=== PATIENT | female | born 1950 | race Caucasian/White ===

== ENCOUNTER → 2018-02-09 13:07 | Outpatient (CLI) | payer OTHER, SELFPAY ==
--- NOTE | 2018-02-09 | DI.US.S_ITS ---
ULTRASOUND OF RIGHT BREAST: 02/09/2018 CLINICAL: Patient returns for additional imaging over a suspected mass in the right breast. Comparison is made to exams dated: 02/09/2018 mammogram and 01/30/2018 mammogram - [facility]. Color flow ultrasound of the right breast was performed. Barrientos scale images of the real-time examination were reviewed. There is a 0.4 cm x 0.3 cm x 0.4 cm oval mass with a circumscribed margin in the right breast at 8 o'clock anterior depth 4 cm from the nipple. This oval mass is hypoechoic. IMPRESSION: SUSPICIOUS OF MALIGNANCY - FOLLOW-UP RECOMMENDED The 0.4 cm x 0.3 cm x 0.4 cm oval mass in the right breast is suspicious of malignancy. An ultrasound guided biopsy is recommended. Findings discussed with the patient in person at the time of evaluation by Dr. Burgos of the department of radiology. This exam was interpreted at Station ID: [id number]. Electronically Signed By: Efrain Silva M.D. cj/:02/09/2018 16:39:46 letter sent: Biopsy Required Ultrasound BI-RADS: 4 Suspicious abnormality
--- NOTE | 2018-02-09 | DI.MG.S_ITS ---
UNILATERAL RIGHT DIGITAL DIAGNOSTIC MAMMOGRAM 3D/2D WITH ADDITIONAL VIEWS: 02/09/2018 CLINICAL: Additional evaluation requested from prior study. Comparison is made [facility] The tissue of the right breast is heterogeneously dense. This may lower the sensitivity of mammography. There is a 5 mm irregular equal density mass with a circumscribed margin in the right breast at 7 o'clock anterior depth. No other significant masses or calcifications are seen in the breast. IMPRESSION: INCOMPLETE: NEEDS ADDITIONAL IMAGING EVALUATION The 5 mm irregular equal density mass in the right breast is indeterminate. An ultrasound is recommended. This exam was interpreted at Station ID: [id number]. NOTE: For mammograms, a report in lay terms will be sent to the patient. Approximately 15% of breast malignancies will not be visualized mammographically. In the management of a palpable breast mass, a negative mammogram must not discourage biopsy of a clinically suspicious lesion. Electronically Signed By: Efrain lugo/alex:02/09/2018 14:33:29 ACR BI-RADS Category 0: Incomplete 3340F
== END ==
PROVIDERS: Visit Provider Internal Medicine
DX: R92.8 Other abnormal and inconclusive findings on diagnostic imaging of breast (principal)
CPT/HCPCS: 76642; 77065; G0279

== ENCOUNTER → 2019-03-11 09:51 | Outpatient (CLI) | payer OTHER, SELFPAY ==
--- NOTE | 2019-03-11 | DI.RAD.S_ITS ---
PROCEDURE: XR CHEST 2V INDICATIONS: DYSPNEA TECHNIQUE: 2 views of the chest were acquired. COMPARISON: None. FINDINGS: Surgical changes and devices: None. Lungs and pleura: Lungs are clear. No pleural effusions or pneumothorax. Mediastinum: Mediastinal contours are normal. Heart size is normal. Bones and chest wall: No suspicious bony abnormalities. Soft tissues appear unremarkable. IMPRESSION: Normal for age, source of current dyspnea symptoms is not seen. Dictated by: Artem Burgos M.D. on 03/11/2019 at 10:13 Approved by: Artem Burgos M.D. on 03/11/2019 at 10:13
== END ==
PROVIDERS: Visit Provider Internal Medicine
DX: R06.00 Dyspnea, unspecified (principal)
CPT/HCPCS: 71046

== ENCOUNTER → 2019-03-16 09:16 | Outpatient (CLI) | payer OTHER, SELFPAY ==
--- NOTE | 2019-03-16 | DI.MG.S_ITS ---
BILATERAL DIGITAL SCREENING MAMMOGRAM 3D/2D WITH CAD: 03/16/2019 CLINICAL: Routine screening. Comparison is made to exams dated: 02/09/2018 mammogram and 01/30/2018 mammogram - [facility]. The tissue of both breasts is heterogeneously dense. This may lower the sensitivity of mammography. Current study was also evaluated with a Computer Aided Detection (CAD) system. There is a benign biopsy clip in the right breast. No significant masses, calcifications, or other findings are seen in either breast. There has been no significant interval change. IMPRESSION: NEGATIVE There is no mammographic evidence of malignancy. A 1 year screening mammogram is recommended. This exam was interpreted at Station ID: [id number]. NOTE: For mammograms, a report in lay terms will be sent to the patient. Approximately 15% of breast malignancies will not be visualized mammographically. In the management of a palpable breast mass, a negative mammogram must not discourage biopsy of a clinically suspicious lesion. Electronically Signed By: Teja ricci/alex:03/16/2019 14:02:32 letter sent: Normal Exam ACR BI-RADS Category 1: Negative 3341F
== END ==
PROVIDERS: PCP Internal Medicine; Visit Provider Internal Medicine
DX: Z12.31 Encounter for screening mammogram for malignant neoplasm of breast (principal); M85.851 Other specified disorders of bone density and structure, right thigh; Z78.0 Asymptomatic menopausal state
CPT/HCPCS: 77063; 77067; 77080

== ENCOUNTER → 2019-07-27 15:13 | Outpatient (ROUT) | payer OTHER, SELFPAY ==
[2019-07-27 16:18] LABS: TSH w/ Reflex to FT4 1.78 uIU/mL (0.47-4.68)
== END ==
PROVIDERS: PCP Internal Medicine; Visit Provider Internal Medicine
DX: E03.9 Hypothyroidism, unspecified (principal)
CPT/HCPCS: 84443

== ENCOUNTER → 2020-02-27 09:22 | Outpatient (CLI) | payer OTHER, SELFPAY ==
[2020-02-28 06:18] LABS: SARS CoV19 IgG Negative (Negative)
== END ==
PROVIDERS: PCP Internal Medicine; Referring Provider Internal Medicine; Visit Provider Internal Medicine
DX: Z03.818 Encounter for observation for suspected exposure to other biological agents ruled out (principal)
CPT/HCPCS: 36415; 86769

== ENCOUNTER → 2020-10-06 08:20 | Outpatient (CLI) | payer MEDICARE, OTHER, SELFPAY ==
--- NOTE | 2020-10-06 | DI.MG.S_ITS ---
BILATERAL DIGITAL SCREENING MAMMOGRAM 3D/2D WITH CAD: 10/06/2020 CLINICAL: Routine screening. Comparison is made to exams dated: 03/16/2019 mammogram, 02/09/2018 mammogram, and 01/30/2018 mammogram - [facility]. The tissue of both breasts is heterogeneously dense. This may lower the sensitivity of mammography. Current study was also evaluated with a Computer Aided Detection (CAD) system. There is a biopsy clip in the right breast. No significant masses, calcifications, or other findings are seen in either breast. There has been no significant interval change. IMPRESSION: NEGATIVE There is no mammographic evidence of malignancy. A 1 year screening mammogram is recommended. This exam was interpreted at Station ID: [id number]. NOTE: For mammograms, a report in lay terms will be sent to the patient. Approximately 15% of breast malignancies will not be visualized mammographically. In the management of a palpable breast mass, a negative mammogram must not discourage biopsy of a clinically suspicious lesion. Electronically Signed By: Tim hernandes/alex:10/08/2020 09:26:05 letter sent: Normal Exam ACR BI-RADS Category 1: Negative 3341F
== END ==
PROVIDERS: PCP Internal Medicine; Referring Provider Internal Medicine; Visit Provider Internal Medicine
DX: Z12.31 Encounter for screening mammogram for malignant neoplasm of breast (principal)
CPT/HCPCS: 77063; 77067

== ENCOUNTER → 2021-02-28 15:39 | Outpatient (ROUT) | payer MEDICARE, OTHER, SELFPAY ==
[2021-02-28 16:25] LABS: Aspartate Aminotransferase 29 IU/L (14-36); BUN Creatinine Ratio 23.4 (6-22); Blood Urea Nitrogen 15 mg/dL (7-17); Calcium 9.9 mg/dL (8.4-10.2); Carbon Dioxide 28 mmol/L (22-32); Chloride 105 mmol/L (98-107); Cholesterol 204 mg/dL (140-199); Estimated Glomerular Filt Rate > 60.0 mL/min (>60); Glucose 94 mg/dL (80-110); HDL Cholesterol 77 mg/dL (40-60); HEMOLYSIS < 15 (0-50); LDL Cholesterol Calculated 117 mg/dL (<100); Potassium 4.2 mmol/L (3.4-5.1); Sodium 140 mmol/L (137-145); Triglycerides 50 mg/dL (35-150)
[2021-02-28 16:52] LABS: TSH w/ Reflex to FT4 0.25 uIU/mL (0.47-4.68)
[2021-02-28 18:39] LABS: Free T4, Direct Thyroxine 2.46 ng/dL (0.78-2.19)
== END ==
PROVIDERS: PCP Internal Medicine; Visit Provider Internal Medicine
DX: E03.9 Hypothyroidism, unspecified (principal); E78.2 Mixed hyperlipidemia
CPT/HCPCS: 80048; 80061; 84439; 84443; 84450

== ENCOUNTER 2021-03-21 10:43 | Emergency (ER) | payer MEDICARE, OTHER, SELFPAY ==
[2021-03-21 10:45] VITALS: BP 132/63; PULSE 64; RESP 14; TEMP 37.3; O2SAT 100; BMI 22.6
[2021-03-21 15:35] VITALS: BP 105/60; PULSE 63; RESP 18; O2SAT 97
--- NOTE | 2021-03-21 17:11 | ED.FALL ---
HPI - Fall General Chief Complaint: Fall Stated Complaint: fell and hit head Time Seen by Provider: 03/21/21 16:40 Source: patient Mode of arrival: Wheelchair History of Present Illness HPI Narrative: 71-year-old woman with a history of Troy's esophagus, hyperlipidemia, hypothyroidism, depression and sleep issues who was playing [employer] ball this afternoon tripped stumbled and fell backward hitting the occiput of her head. She comes in for further evaluation. She notes some minor tenderness in the left trapezius in the left buttock without significant contusion. She was able to walk without difficulty after the injury. She notes that she has a mild amount of dizziness and L low-grade headache but no other symptoms at this time. I she is alert and oriented and complains of no recent fevers, cough, chills, palpitations, chest pain, orthopnea, dyspnea, changed any of her abdominal pain or bowel habits and no dysuria. Related Data Allergies Allergy/AdvReac Type Severity Reaction Status Date / Time No Known Drug Allergies Allergy Verified 03/21/21 10:51 Review of Systems Review of Systems Narrative: Remainder of complete review of systems is otherwise unremarkable except for that included in the HPI. Patient History Medical History Barretts esophagus Depression Hyperlipidemia Hypothyroid Social History Smoking Status: Unknown if ever smoked Smoking Status: Unknown if ever smoked alcohol intake frequency: holidays/special occasions only Substance Use Type: does not use Exam Narrative Exam Narrative: General: Healthy appearing, in no acute distress. Able to give a complete and coherent history. Well-nourished well-developed HEENT: Moist mucous membranes, normal sclera with reactive pupils, no hemorrhage on bilateral funduscopic exam. No blood behind tympanic membranes. Minor abrasion to the occiput without any signs of skull fracture. Neck: supple, no midline cervical spine tenderness. Some minor trapezius muscle spasm on the left side developing Chest: No rib fractures on palpitation no abrasions or contusions no subcutaneous air Respiratory: Lungs are clear to auscultation, no wheezing no rales no rhonchi. Full and symmetrical air movement Cardiac: Regular rate and rhythm no murmurs no bruits Abdomen: Soft, nontender, good bowel tones, no flank pain Skin: Warm and dry, no rashes Pelvis: No tenderness along thoracic or lumbar spine no coccyx tenderness some mild pain into the left buttock without any pelvic ring or ischial tuberosity issues. Neurologic: Grossly neurologically intact with no obvious asymmetries or abnormalities Extremities: No trauma, well perfused Psych: Cooperative, appropriate insight and affect Initial Vital Signs Initial Vital Signs: Vital Signs Temperature 99.1 F 03/21/21 10:45 Pulse Rate 64 03/21/21 10:45 Respiratory Rate 14 03/21/21 10:45 Blood Pressure 132/63 03/21/21 10:45 Pulse Oximetry 100 03/21/21 10:45 Course Orders Ordered: Discontinued Medications Acetaminophen (Acetaminophen 325 Mg Tablet) 325 mg PO NOW ONE Stop: 03/21/21 17:10 Ibuprofen (Ibuprofen 400 Mg Tablet) 400 mg PO NOW ONE Stop: 03/21/21 17:10 Vital Signs Vital signs: Vital Signs - 8 hr 03/21/21 10:45 03/21/21 15:35 Temperature 99.1 F Pulse Rate 64 63 Respiratory Rate 14 18 Blood Pressure 132/63 105/60 Pulse Oximetry 100 97 [facility] - Fall Medical Records Attestation: I reviewed the patient's medical records. Lab Data Attestation: I reviewed the patient's lab results. [facility] Narrative Medical decision making narrative: 71-year-old woman who had a mechanical fall landing and hitting the occiput of her head without loss of consciousness. At this time she is not meeting any criteria for head CT. We clearly reviewed signs and symptoms of head bleed and concussion and suggested that they have a very low threshold for returning if she has any worsening symptoms. In the meantime, reassurance is given, discussed anticipated course of recovery including nausea headaches over the next couple of days and increased pain musculoskeletal E for the 1st 24-48 hours. Questions are answered and she is safe for home discharge Discharge Plan Departure Patient Disposition: Home Clinical Impression: Concussion without loss of consciousness Qualifiers: Encounter type: initial encounter Qualified Code(s): S06.0X0A - Concussion without loss of consciousness, initial encounter Fall Qualifiers: Encounter type: initial encounter Qualified Code(s): W19.XXXA - Unspecified fall, initial encounter Contusion of head Qualifiers: Encounter type: initial encounter Contusion of head detail: scalp Qualified Code(s): S00.03XA - Contusion of scalp, initial encounter Contusion of hip, right Qualifiers: Encounter type: initial encounter Qualified Code(s): S70.01XA - Contusion of right hip, initial encounter Instructions: DI for Concussion, DI for Postconcussion Syndrome Activity Restrictions/Additional Instructions: Thank you for coming in today and being so patient with the long wait. On your exam, I am seeing no evidence of fractures of your skull your cervical spine your lumbar spine or your pelvis. At this time, we do not need to do a CT scan of your head. By definition you do have a concussion and will likely feel a bit ?off? for the next couple of days. Allow yourself time to heal and the patient with the irritability that you may notice. Using 400 mg of ibuprofen (2 yjtd-huw-zjjoort pills) and 1 Tylenol every 6 hours can be very helpful in controlling pain. Zofran, a nausea medicine, can help with the general nausea that frequently accompanies concussions If you notice any worsening symptoms at all, please return to the ER Referrals: Rob Calderon MD [Primary Care Provider] -
[2021-03-21] MEDS: IBUPROFEN 400 MG TABLET PO (17:20)
[2021-03-21] MEDS: ACETAMINOPHEN 325 MG TABLET PO (17:21)
== END 2021-03-21 17:43 | disposition home or self-care (01) ==
PROVIDERS: Emergency Provider Emergency Medicine; PCP Internal Medicine
DX: S06.0X0A Concussion without loss of consciousness, initial encounter (principal); S00.03XA Contusion of scalp, initial encounter; S70.01XA Contusion of right hip, initial encounter; W19.XXXA Unspecified fall, initial encounter
CPT/HCPCS: 99282; 99283

== ENCOUNTER → 2021-08-02 09:13 | Outpatient (CLI) | payer MEDICARE, OTHER, SELFPAY ==
[2021-08-02 09:50] LABS: COVID19 -Nasal RAPID Negative (Negative)
== END ==
PROVIDERS: PCP Internal Medicine; Visit Provider Physician Assistant
DX: Z20.822 Contact with and (suspected) exposure to COVID-19 (principal)
CPT/HCPCS: 87635

== ENCOUNTER 2021-12-18 00:54 | Emergency (ER) | payer MEDICARE, SELFPAY ==
--- NOTE | 2021-12-18 00:57 | ED.HEATRA ---
HPI - Head Injury General Chief complaint: Fall Stated complaint: FELL AND HIT HEAD AND IS BLEEDING Time Seen by Provider: 12/18/21 00:55 History of Present Illness HPI Narrative: 71F nonsmoker with history of hyper lipidemia, hypothyroid, and depression presents with her in the chief complaint of an accidental ground level fall resulting in head injury. She takes no blood thinners and denies use of alcohol. She may have been a very brief loss of consciousness but quickly resumed her normal behavior. She is at her baseline on arrival. She denies any blurred vision, trouble speech. She has no vomiting and denies other injury. She states that she was walking down her stairs and may have fell down 3 stairs or so and struck her head. She denies any neck or back pain and states the fall was purely mechanical and due to a clutzy moment. Related Data Previous Rx's Medication Instructions Recorded ondansetron 4 mg disintegrating 4 mg PO Q8H PRN #10 tab 03/21/21 tablet Allergies Allergy/AdvReac Type Severity Reaction Status Date / Time No Known Drug Allergies Allergy Verified 03/21/21 10:51 Review of Systems Review of Systems Narrative: GENERAL: Denies chills, fatigue, malaise, fever, sweats. HEENT: Denies sinus pain, ear pain, sore throat, difficulty swallowing, dizziness. RESPIRATORY: Denies dyspnea, cough, wheezing, hemoptysis, sputum. CARDIOVASCULAR: Denies chest pain, palpitations, orthopnea, edema, GASTROINTESTINAL: Denies nausea, vomiting, abdominal pain, diarrhea, constipation, melena. : Denies dysuria, frequency, incontinence, hematuria, urinary retention. MUSCULOSKELETAL: denies weakness, joint pain, or bony pain SKIN: See HPI NEUROLOGIC: Denies weakness, headache, numbness, change in speech, confusion, seizures, incoordination. PSYCHIATRIC: No concerning psychosocial issues. 12 point review of systems is negative except for those stated above Patient History Medical History Barretts esophagus Depression Hyperlipidemia Hypothyroid Social History Smoking Status: Never smoker Smoking Status: Unknown if ever smoked alcohol intake frequency: holidays/special occasions only Substance Use Type: does not use Exam Narrative Exam Narrative: GENERAL: [71] year old patient appears stated age. Well-developed patient, in mild distress. GCS 15 HEAD: Atraumatic. Normocephalic. No evidence of depressed skull fracture EYES: Pupils equal round and reactive. No hyphema. Extraocular motions intact. No scleral icterus. No injection or drainage. ENT: Nose without bleeding, purulent drainage. Throat without erythema, tonsillar hypertrophy or exudate. Airway patent. NECK: Trachea midline. Non tender CARDIOVASCULAR: Regular rate and rhythm without murmurs, gallops, or rubs. RESPIRATORY: Clear to auscultation. Breath sounds equal bilaterally. No wheezes, rales, or rhonchi. GASTROINTESTINAL: Abdomen soft, non-tender, nondistended. EXTREMITIES: No edema or joint tenderness. BACK: Nontender without deformity or crepitance. No flank tenderness. NEURO: AOx3. SKIN: No rash or erythema of visible areas Initial Vital Signs Initial Vital Signs: Vital Signs Temperature 97.3 F L 12/18/21 01:08 Pulse Rate 76 12/18/21 01:08 Respiratory Rate 15 12/18/21 01:08 Blood Pressure 118/52 L 12/18/21 01:08 Pulse Oximetry 94 12/18/21 01:08 Procedures Laceration Repair Laceration 1: Site: scalp Side (If applicable): right Size (cm): 3 Description: stellate Depth: simple, single layer Local Anesthetic: lidocaine 1% and with epi Amount of anesthesia used (mL): 5 Pre-repair: wound explored and irrigated extensively Skin layer closed with: ayush Course Orders Ordered: ED Orders 12/18/21 01:01 CT head/brain wo con Stat Discontinued Medications Acetaminophen (Acetaminophen 325 Mg Tablet) 650 mg PO NOW ONE Stop: 12/18/21 01:46 Last Admin: 12/18/21 01:49 Dose: 650 mg Documented by: Diphtheria/Tetanus/Acell Pertussis (Tet,Diph,Pertuss(Acell),Vac/Pf 0.5 Ml Syringe) 0.5 ml IM .ONCE ONE Stop: 12/18/21 01:02 Last Admin: 12/18/21 01:49 Dose: 0.5 ml Documented by: Lidocaine/Epinephrine (Lidocaine 1% W/Epi) 1 ml SUBCUT NOW ONE Stop: 12/18/21 01:02 Last Admin: 12/18/21 01:47 Dose: 1 ml Documented by: COLLINS Vital Signs Vital signs: Vital Signs - 8 hr 12/18/21 01:08 Temperature 97.3 F L Pulse Rate 76 Respiratory Rate 15 Blood Pressure 118/52 L Pulse Oximetry 94 MDM - Head Injury Imaging Data CT scan - head: Radiologist's Impression: Launch?[address] [address] [address] Scan Report Signed Patient: Elda Christy MR#: [id number] : 1950 Acct:[id number] Age/Sex: 71 / F Date of Service: 12/18/21 Loc: ED Accession Number: [id number] ?? Procedure: CT head/brain wo con Ordering Provider: Ken Reese D.O. PROCEDURE:? CT HEAD/BRAIN WO CON ? INDICATIONS:? fall with head injury ? TECHNIQUE:? Noncontrast 4.5 mm thick angled axial sections acquired from the foramen magnum to the vertex, with coronal and sagittal reformats.? For radiation dose reduction, the following was used:? automated exposure control, adjustment of mA and/or kV according to patient size.? ? COMPARISON:? None. ? FINDINGS:? Image quality:? Excellent.? ? CSF spaces:? Basal cisterns are patent.? No extra-axial fluid collections.? The ventricles are symmetric in size and shape.? There is mild cerebral volume loss, with resultant ventricular and sulcal prominence.? ? Brain:? No intracranial hemorrhage, mass, or mass effect.? There are subcortical, periventricular and deep white matter hypodensities consistent with mild chronic small vessel ischemic changes.? The light-white matter junction appears preserved.? There is intracranial internal carotid artery atherosclerosis.? ? Skull and face:? Calvarium and visualized facial bones appear intact, without suspicious lesions.? ? Sinuses:? Visualized sinuses and mastoids are clear.? ? IMPRESSION:? ? 1. No acute intracranial abnormality. ? 2. Mild chronic white matter small vessel ischemic changes and cerebral volume loss.? ? ? Dictated by: Teja Toledo M.D. on 12/18/2021 at 1:27 ? ? Approved by: Teja Toledo M.D. on 12/18/2021 at 1:28 ? Discharge Plan Departure Patient Disposition: Home Clinical Impression: Laceration of scalp, Concussion Instructions: DI for Concussion, DI for Laceration Repair -- [place] Activity Restrictions/Additional Instructions: *You have been diagnosed with [scalp laceration and minor concussion with loss of consciousness *What to do: *Please continue to take your regular medications as directed. [ ] New medication prescriptions sent to your pharmacy: [ ] [ ] New medication written as a paper prescription [ ] No new medications given You have a slight concussion and will likely have a mild headache and some nausea for a few days. Avoiding highly stimulating activities and even TV or computers may be helpful in minimizing your symptoms. Avoid activities that will put you at risk for another head injury for at least a week. You can take tylenol or motrin for headache or the prescription provided for nausea/vomiting. Return for worsening or persistent symptoms Please keep the wound clean and dry to the best of your ability. Please monitor for signs of infection such as redness to the skin or increasing pain. Have the sutures/ayush removed by your doctor in about 7 days. If you are unable to get into your doctor, we would be happy to remove the sutures/ayush in that same timeframe. *Return to Emergency Department if you should have any new, worsening or concerning symptoms, such as [fever greater than 101 F, shaking chills, worsening pain, persistent vomiting or other bothersome symptoms] Prescriptions: No Action ondansetron 4 mg tablet,disintegrating 4 mg PO Q8H PRN (Reason: nausea and vomiting) Qty: 10 0RF Referrals: Rob Calderon MD [Primary Care Provider] -
--- NOTE | 2021-12-18 01:01 | DI.CT.S_ITS ---
PROCEDURE: CT HEAD/BRAIN WO CON INDICATIONS: fall with head injury TECHNIQUE: Noncontrast 4.5 mm thick angled axial sections acquired from the foramen magnum to the vertex, with coronal and sagittal reformats. For radiation dose reduction, the following was used: automated exposure control, adjustment of mA and/or kV according to patient size. COMPARISON: None. FINDINGS: Image quality: Excellent. CSF spaces: Basal cisterns are patent. No extra-axial fluid collections. The ventricles are symmetric in size and shape. There is mild cerebral volume loss, with resultant ventricular and sulcal prominence. Brain: No intracranial hemorrhage, mass, or mass effect. There are subcortical, periventricular and deep white matter hypodensities consistent with mild chronic small vessel ischemic changes. The light-white matter junction appears preserved. There is intracranial internal carotid artery atherosclerosis. Skull and face: Calvarium and visualized facial bones appear intact, without suspicious lesions. Sinuses: Visualized sinuses and mastoids are clear. IMPRESSION: 1. No acute intracranial abnormality. 2. Mild chronic white matter small vessel ischemic changes and cerebral volume loss. Dictated by: Teja Toledo M.D. on 12/18/2021 at 1:27 Approved by: Teja Toledo M.D. on 12/18/2021 at 1:28
[2021-12-18 01:08] VITALS: BP 118/52; PULSE 76; RESP 15; TEMP 36.3; O2SAT 94; BMI 26.6
[2021-12-18] MEDS: LIDOCAINE 1% W/EPI 1 ML SUBCUT (01:47)
[2021-12-18] MEDS: TET,DIPH,PERTUSS(ACELL),VAC/PF 0.5 ML SYRINGE IM (01:49)
[2021-12-18] MEDS: ACETAMINOPHEN 325 MG TABLET 650 MG PO (01:49)
== END 2021-12-18 02:16 | disposition home or self-care (01) ==
PROVIDERS: Emergency Provider Emergency Medicine; PCP Internal Medicine
DX: S01.01XA Laceration without foreign body of scalp, initial encounter (principal); S06.0X0A Concussion without loss of consciousness, initial encounter; W10.9XXA Fall (on) (from) unspecified stairs and steps, initial encounter; Z23 Encounter for immunization
CPT/HCPCS: 12002; 70450; 90471; 99284; 90715

== ENCOUNTER → 2022-02-02 09:32 | Outpatient (CLI) | payer MEDICARE, SELFPAY ==
[2022-02-02 10:29] LABS: Influenza A - CEPHEID Flu A NEGATIVE (NEGATIVE); Influenza B - CEPHEID Flu B NEGATIVE (NEGATIVE)
[2022-02-02 10:31] LABS: COVID-19 CEPHEID PCR (VTM/NP) Negative (Negative)
== END ==
PROVIDERS: PCP Internal Medicine; Visit Provider Physician Assistant
DX: R05.9 Cough, unspecified (principal); Z20.822 Contact with and (suspected) exposure to COVID-19
CPT/HCPCS: 0240U

== ENCOUNTER → 2022-07-17 10:04 | Outpatient (CLI) | payer MEDICARE, SELFPAY ==
--- NOTE | 2022-07-17 | DI.MG.S_ITS ---
BILATERAL DIGITAL SCREENING MAMMOGRAM 3D/2D WITH CAD: 07/17/2022 CLINICAL: Routine screening. Comparison is made to exams dated: 10/06/2020 mammogram, 03/16/2019 mammogram, 02/09/2018 mammogram, and 01/30/2018 mammogram - [facility]. Both breasts are heterogeneously dense, which may obscure small masses (category c / 51-75% glandular tissue). Current study was also evaluated with a Computer Aided Detection (CAD) system. There is a biopsy clip in the right breast. No significant masses, calcifications, or other findings are seen in either breast. There has been no significant interval change. IMPRESSION: NEGATIVE There is no mammographic evidence of malignancy. A 1 year screening mammogram is recommended. Based on the Tyrer Cuzick model (a risk assessment model) the patient's lifetime risk is 6.1% and her 10 year risk is 5.5%. According to the ACR, ACS, and NCCN guidelines, an annual breast MRI exam along with mammogram is recommended if the patient's lifetime risk is 20% or greater. This exam was interpreted at Station ID: [id number]. NOTE: For mammograms, a report in lay terms will be sent to the patient. Approximately 15% of breast malignancies will not be visualized mammographically. In the management of a palpable breast mass, a negative mammogram must not discourage biopsy of a clinically suspicious lesion. Electronically Signed By: Gian Menjivar M.D., jr/alex:07/17/2022 13:57:18 letter sent: Normal Exam ACR BI-RADS Category 1: Negative 3341F
== END ==
PROVIDERS: PCP Internal Medicine; Referring Provider Internal Medicine; Visit Provider Internal Medicine
DX: Z12.31 Encounter for screening mammogram for malignant neoplasm of breast (principal)
CPT/HCPCS: 77063; 77067

== ENCOUNTER → 2022-07-30 10:19 | Outpatient (CLI) | payer MEDICARE, SELFPAY ==
[2022-07-30 11:11] LABS: Hematocrit 43.4 % (36-46); Hemoglobin 14.5 g/dL (12.0-16.0); Mean Corpuscular HGB Conc 33.3 % (30-36); Mean Corpuscular Hemoglobin 32.3 PG (26-34); Platelet Count 217 X10^3/uL (150-400); Red Blood Cell Count 4.48 X10^6/uL (4.0-5.2); Red Cell Distribution Width 12.9 % (11.6-14.8); White Blood Cell Count 4.3 X10^3/uL (4.5-11.0)
[2022-07-30 11:39] LABS: Alanine Aminotransferase 41 IU/L (<35); Albumin 4.7 g/dL (3.5-5.0); Albumin Globulin Ratio 1.7 (1.0-2.8); Alkaline Phosphatase 68 U/L (38-126); Aspartate Aminotransferase 35 IU/L (14-36); BUN Creatinine Ratio 18.7 (6-22); Bilirubin Total 0.7 mg/dL (0.2-1.3); Blood Urea Nitrogen 17 mg/dL (7-17); Calcium 9.6 mg/dL (8.4-10.2); Carbon Dioxide 29 mmol/L (22-32); Chloride 102 mmol/L (98-107); Cholesterol 175 mg/dL (140-199); Estimated Glomerular Filt Rate > 60 mL/min (>60); Globulin 2.8 g/dL (1.7-4.1); Glucose 93 mg/dL (80-110); HDL Cholesterol 81 mg/dL (40-60); HEMOLYSIS < 15 (0-50); LDL Cholesterol Calculated 79 mg/dL (<100); Potassium 4.4 mmol/L (3.4-5.1); Sodium 139 mmol/L (137-145); Total Protein 7.5 g/dL (6.3-8.2); Triglycerides 75 mg/dL (35-150)
[2022-07-30 12:12] LABS: TSH w/ Reflex to FT4 0.08 uIU/mL (0.47-4.68)
[2022-07-30 13:49] LABS: Free T4, Direct Thyroxine 1.94 ng/dL (0.78-2.19)
== END ==
PROVIDERS: PCP Internal Medicine; Referring Provider Internal Medicine; Visit Provider Internal Medicine
DX: E03.9 Hypothyroidism, unspecified (principal); E78.2 Mixed hyperlipidemia
CPT/HCPCS: 36415; 80053; 80061; 84439; 84443; 85027

== ENCOUNTER → 2023-06-18 10:23 | Outpatient (CLI) | payer MEDICARE, SELFPAY ==
[2023-06-18 11:10] LABS: Add Manual Diff / Slide Review NO; Basophils Absolute Auto 100 /uL (0-100); Basophils Percent Auto 1.3 % (0-2); Eosinophils Absolute Auto 200 /uL (0-450); Eosinophils Percent Auto 4.3 % (2-4); Hematocrit 40.7 % (36-46); Hemoglobin 13.8 g/dL (12.0-16.0); Lymphocytes Absolute Auto 1200 /uL (1100-4500); Lymphocytes Percent Auto 28.5 % (25-40); Mean Corpuscular HGB Conc 33.8 % (30-36); Mean Corpuscular Hemoglobin 32.6 PG (26-34); Mean Corpuscular Volume 96.2 fL (80-100); Monocytes Absolute Auto 500 /uL (0-900); Monocytes Percent Auto 11.4 % (3-14); Neutrophils Absolute Auto 2300 /uL (1500-7000); Neutrophils Percent Auto 54.5 % (50-75); Platelet Count 198 X10^3/uL (150-400); Red Blood Cell Count 4.23 X10^6/uL (4.0-5.2); Red Cell Distribution Width 12.8 % (11.6-14.8); White Blood Cell Count 4.2 X10^3/uL (4.5-11.0)
[2023-06-18 11:43] LABS: BUN Creatinine Ratio 18.5 (6-22); Blood Urea Nitrogen 15 mg/dL (7-17); Calcium 9.4 mg/dL (8.4-10.2); Carbon Dioxide 30 mmol/L (22-32); Chloride 105 mmol/L (98-107); Estimated Glomerular Filt Rate > 60 mL/min (>60); Glucose 95 mg/dL (80-110); HEMOLYSIS < 15 (0-50); Potassium 4.7 mmol/L (3.4-5.1); Sodium 140 mmol/L (137-145)
[2023-06-18 12:12] LABS: TSH w/ Reflex to FT4 9.34 uIU/mL (0.47-4.68)
[2023-06-18 14:18] LABS: Free T4, Direct Thyroxine 0.79 ng/dL (0.78-2.19)
== END ==
PROVIDERS: PCP Internal Medicine; Referring Provider Internal Medicine; Visit Provider Internal Medicine
DX: E03.9 Hypothyroidism, unspecified (principal); E87.6 Hypokalemia; D72.819 Decreased white blood cell count, unspecified
CPT/HCPCS: 36415; 80048; 84439; 84443; 85025

== ENCOUNTER → 2023-08-01 09:49 | Outpatient (CLI) | payer MEDICARE, SELFPAY ==
--- NOTE | 2023-08-01 09:51 | DI.MG.S_ITS ---
BILATERAL DIGITAL SCREENING MAMMOGRAM 3D/2D WITH CAD: 08/01/2023 CLINICAL: Routine screening. Comparison is made to exams dated: 07/17/2022 mammogram, 10/06/2020 mammogram, and 03/16/2019 mammogram - [facility]. Both breasts are heterogeneously dense, which may obscure small masses (category c / 51-75% glandular tissue). Current study was also evaluated with a Computer Aided Detection (CAD) system. There is a biopsy clip in the right breast. No significant masses, calcifications, or other findings are seen in either breast. There has been no significant interval change. IMPRESSION: NEGATIVE There is no mammographic evidence of malignancy. A 1 year screening mammogram is recommended. Based on the Tyrer Cuzick model (a risk assessment model) the patient's lifetime risk is 5.6% and her 10 year risk is 5.6%. According to the ACR, ACS, and NCCN guidelines, an annual breast MRI exam along with mammogram is recommended if the patient's lifetime risk is 20% or greater. This exam was interpreted at Station ID: [id number]. NOTE: For mammograms, a report in lay terms will be sent to the patient. Approximately 15% of breast malignancies will not be visualized mammographically. In the management of a palpable breast mass, a negative mammogram must not discourage biopsy of a clinically suspicious lesion. Electronically Signed By: Dania hauser/alex:08/03/2023 12:23:09 letter sent: Normal Exam ACR BI-RADS Category 1: Negative 3341F
== END ==
PROVIDERS: PCP Internal Medicine; Referring Provider Internal Medicine; Visit Provider Internal Medicine
DX: Z12.31 Encounter for screening mammogram for malignant neoplasm of breast (principal)
CPT/HCPCS: 77063; 77067

== ENCOUNTER → 2024-06-23 09:47 | Outpatient (CLI) | payer MEDICARE, SELFPAY | PROVIDERS: PCP Internal Medicine; Referring Provider Student in an Organized Health Care Education/Training Program; Visit Provider Student in an Organized Health Care Education/Training Program | DX: R06.02 Shortness of breath (principal); R06.00 Dyspnea, unspecified; Z86.16 Personal history of COVID-19 | CPT/HCPCS: 94060; 94726; 94729 ==

== ENCOUNTER → 2024-07-04 08:51 | Outpatient (CLI) | payer MEDICARE, SELFPAY ==
--- NOTE | 2024-07-04 08:52 | DI.CT.S_ITS ---
PROCEDURE: CT CHEST HIGH RESOLUTION INDICATIONS: persistent dyspnea since COV2022 TECHNIQUE: Noncontrast 1.0 and 5.0 mm thick contiguous axial sections from the pulmonary apex to the posterior costophrenic angles, with 7 mm thick coronal and sagittal MIP reformats. 1 mm thick dynamic expiratory images acquired through the upper, mid, and lower lungs. 1.0 mm thick axial sections acquired from the david to the posterior costophrenic angles in the prone end-inspiration position. For radiation dose reduction, the following was used: automated exposure control, adjustment of mA and/or kV according to patient size. COMPARISON: None available. FINDINGS: Image quality: Diagnostic. Lower Neck: No enlarged lymph nodes. Thyroid: No thyroid nodules which require sonographic follow up, per consensus guidelines. Axillae: No enlarged lymph nodes. Chest Wall: Biopsy clip in the right breast. Left breast upper outer quadrant nodule measuring 1.5 cm, (). Bones: No suspicious osseous lesion. Lungs and Pleura: No pneumothorax or pleural effusions. No consolidation or suspicious nodules. Mild dependent atelectasis which improves on the prone sequence. Central airways are clear. No air trapping. No honeycombing. No bronchiectasis. Heart: Heart size is normal. Moderate coronary artery calcifications in the right coronary artery and LAD. No pericardial effusion. Thoracic Vessels: The aorta and pulmonary arteries demonstrate normal size. Mediastinum and Marivel: No enlarged lymph nodes. Esophagus: No wall thickening. No hiatal hernia. Upper Abdomen: Post cholecystectomy. IMPRESSION: 1. No interstitial lung disease. No significant acute airspace opacity. No pleural effusion. 2. No mass or significant pulmonary nodules. 3. Moderate coronary artery calcifications. 4. Left breast upper outer quadrant nodule measuring 1.5 cm. This could represent a cyst or mass. -Recommend diagnostic mammogram and possible ultrasound. Dictated by: Edwin Paulino M.D. on 07/04/2024 at 11:10 Approved by: Edwin Paulino M.D. on 07/04/2024 at 11:25
== END ==
PROVIDERS: PCP Internal Medicine; Referring Provider Internal Medicine; Visit Provider Internal Medicine
DX: E03.9 Hypothyroidism, unspecified (principal); R06.02 Shortness of breath; N63.22 Unspecified lump in the left breast, upper inner quadrant; I25.10 Atherosclerotic heart disease of native coronary artery without angina pectoris; Z90.49 Acquired absence of other specified parts of digestive tract
CPT/HCPCS: 71250

== ENCOUNTER → 2024-07-11 08:30 | Outpatient (CLI) | payer MEDICARE, SELFPAY ==
[2024-07-11 10:57] LABS: Add Manual Diff / Slide Review NO; Basophils Absolute Auto 100 /uL (0-100); Basophils Percent Auto 1.6 % (0-2); Eosinophils Absolute Auto 200 /uL (0-450); Eosinophils Percent Auto 4.4 % (2-4); Hematocrit 39.2 % (36-46); Hemoglobin 13.4 g/dL (12.0-16.0); Lymphocytes Absolute Auto 1300 /uL (1100-4500); Lymphocytes Percent Auto 29.8 % (25-40); Mean Corpuscular HGB Conc 34.2 % (30-36); Mean Corpuscular Hemoglobin 33.1 PG (26-34); Mean Corpuscular Volume 96.8 fL (80-100); Monocytes Absolute Auto 400 /uL (0-900); Monocytes Percent Auto 10.2 % (3-14); Neutrophils Absolute Auto 2400 /uL (1500-7000); Platelet Count 216 X10^3/uL (150-400); Red Blood Cell Count 4.06 X10^6/uL (4.0-5.2); Red Cell Distribution Width 12.9 % (11.6-14.8); White Blood Cell Count 4.4 X10^3/uL (4.5-11.0)
[2024-07-11 11:16] LABS: NT-proBNP (BNP-Adult 18+) 428 pg/mL (<450)
[2024-07-11 11:38] LABS: TSH w/ Reflex to FT4 3.22 uIU/mL (0.47-4.68)
== END ==
PROVIDERS: PCP Internal Medicine; Referring Provider Internal Medicine; Visit Provider Internal Medicine
DX: E03.9 Hypothyroidism, unspecified (principal); R06.02 Shortness of breath
CPT/HCPCS: 36415; 83880; 84443; 85025

== ENCOUNTER → 2024-08-23 08:46 | Outpatient (CLI) | payer MEDICARE, SELFPAY ==
--- NOTE | 2024-08-23 | DI.US.S_ITS ---
LIMITED ULTRASOUND OF LEFT BREAST: 08/23/2024 CLINICAL: Patient returns today to evaluate a focal asymmetry in the left breast. Comparison exams: CT chest 07/04/2024, mammogram 08/23/2024 Color flow and real-time ultrasound of the left breast upper outer quadrant were performed. Barrientos scale images of the real-time examination were reviewed. There is a simple cyst in the left breast at 2 o'clock, 5 cm from the nipple measuring 1.2 cm. This finding corresponds to the mammographic and CT mass. IMPRESSION: BENIGN Left breast 1.2 cm simple cyst at 2 o'clock position is benign. No sonographic or mammographic evidence of malignancy. A 1 year screening mammogram is recommended. Findings and recommendations were conveyed to the patient during today's evaluation. This exam was interpreted at Station ID: [id number]. Electronically Signed By: Omaira Watson M.D., Ph.D. eb/:08/23/2024 11:49:38 letter sent: Normal Exam ACR BI-RADS Category 2: Benign
--- NOTE | 2024-08-23 | DI.MG.S_ITS ---
BILATERAL DIGITAL DIAGNOSTIC MAMMOGRAM 3D/2D: 08/23/2024 CLINICAL: Left breast mass seen on CT 07/04/2024. Comparison is made to exams dated: 08/01/2023 mammogram, 07/17/2022 mammogram, and 10/06/2020 mammogram - [facility]. The breasts are heterogeneously dense, which may obscure small masses (category c / 51-75% glandular tissue). There is a 1.2 cm oval mass with a circumscribed margin in the left breast at 2 o'clock anterior depth. This finding likely corresponds to mass seen on recent CT 07/04/2024. No other significant masses, calcifications, or other findings are seen in either breast. IMPRESSION: INCOMPLETE: NEED ADDITIONAL IMAGING EVALUATION The 1.2 cm oval mass in the left breast is indeterminate. An ultrasound is recommended for further evaluation and is scheduled to immediately follow this examination. Based on the Tyrer Cuzick model (a risk assessment model) the patient's lifetime risk is 5.1% and her 10 year risk is 0.0%. According to the ACR, ACS, and NCCN guidelines, an annual breast MRI exam along with mammogram is recommended if the patient's lifetime risk is 20% or greater. This exam was interpreted at Station ID: [id number]. NOTE: For mammograms, a report in lay terms will be sent to the patient. Approximately 15% of breast malignancies will not be visualized mammographically. In the management of a palpable breast mass, a negative mammogram must not discourage biopsy of a clinically suspicious lesion. Electronically Signed By: Omaira Watson M.D., Ph.D. eb/:08/23/2024 11:45:38 letter sent: Additional Imaging Needed ACR BI-RADS Category 0: Incomplete: Need Additional Imaging Evaluation
== END ==
PROVIDERS: PCP Family Medicine; Referring Provider Family Medicine; Visit Provider Family Medicine
DX: N63.21 Unspecified lump in the left breast, upper outer quadrant (principal); N60.02 Solitary cyst of left breast; R92.8 Other abnormal and inconclusive findings on diagnostic imaging of breast; R92.333 Mammographic heterogeneous density, bilateral breasts
CPT/HCPCS: 76642; 77066; G0279

== ENCOUNTER → 2025-06-19 11:56 | Outpatient (CLI) | payer MEDICARE, SELFPAY ==
--- NOTE | 2025-06-19 11:57 | DI.RAD.S_ITS ---
PROCEDURE: XR DEXA AXIAL SKELETON INDICATIONS: routine COMPARISON: [facility], , XR DEXA AXIAL SKELETON, 03/16/2019, 9:43. FINDINGS: Lumbar Spine: Bone mineral density 1.084 (previously 1.190) g/cm2, T score 0.3 (previously 0.0). Left Femoral Neck: Bone mineral density 0.692 (previously 0.914) g/cm2, T score -1.4 (previously -0.9). Left Hip: Bone mineral density 0.790 (previously 0.889) g/cm2, T score -1.2 (previously -0.9). Fracture Risk Calculation (when applicable): 10-year fracture risk of a major osteoporotic fracture 12 percent and of a hip fracture 2.5 percent. (T score greater or equal to -1.0 to: NORMAL) (T score from -1.1 to -2.4: OSTEOPENIA) (T score less than or equal to -2.5: OSTEOPOROSIS) IMPRESSION: Osteopenia--- recommend repeat DEXA in 2-3 years for reassessment. Follow-up guidelines as follows: Osteoporosis: Consider a repeat DEXA and Vertebral Fracture Assessment (VFA) exam in 2 years or sooner if medically necessary, to reassess this patient's status. Osteopenia: Consider a repeat DEXA in 2-3 years to reassess this patient's status, or if there is a new clinical indication. Normal: Consider a repeat DEXA in 5 years or sooner, or if there is a new clinical indication. All treatment decisions require clinical judgment and consideration of individual patient factors, including patient preferences, comorbidities, previous drug use, risk factors not captured in the FRAX model (e.g., frailty, falls, vitamin D deficiency, increased bone turnover, interval significant decline in bone density ) and possible under- or over-estimation of fracture risk by FRAX. In addition, the NOF Guide recommends that FDA-approved medical therapies be considered in postmenopausal women and men age >= 50 years with a: * Hip or vertebral (clinical or morphometric) fracture * T-score of <=-2.5 at the spine or hip * Ten-year fracture probability by FRAX of >= 3% for hip fracture or >=20% for major osteoporotic fracture. Dictated by: Chris Dobbins M.D. on 06/19/2025 at 20:51 Approved by: Chris Dobbins M.D. on 06/19/2025 at 20:55
== END ==
PROVIDERS: PCP Family Medicine; Referring Provider Family Medicine; Visit Provider Family Medicine
DX: M85.852 Other specified disorders of bone density and structure, left thigh (principal); Z78.0 Asymptomatic menopausal state; F51.01 Primary insomnia; R06.02 Shortness of breath; E03.9 Hypothyroidism, unspecified; E78.2 Mixed hyperlipidemia; F32.5 Major depressive disorder, single episode, in full remission; K22.70 Barrett's esophagus without dysplasia; K20.90 Esophagitis, unspecified without bleeding; R06.83 Snoring; E78.00 Pure hypercholesterolemia, unspecified; R63.5 Abnormal weight gain
CPT/HCPCS: 77080

== ENCOUNTER → 2025-06-22 11:07 | Outpatient (CLI) | payer MEDICARE, SELFPAY ==
[2025-06-22 11:46] LABS: Add Manual Diff / Slide Review NO; Hematocrit 39.3 % (36-46); Hemoglobin 13.2 g/dL (12.0-16.0); Lymphocytes Absolute Auto 1100 /uL (1100-4500); Mean Corpuscular HGB Conc 33.6 % (30-36); Mean Corpuscular Hemoglobin 32.7 PG (26-34); Mean Corpuscular Volume 97.3 fL (80-100); Platelet Count 227 X10^3/uL (150-400)
[2025-06-22 12:03] LABS: Hemoglobin A1C% w Est Avg Glu 5.2 % (4.0-6.0)
[2025-06-22 12:20] LABS: Alanine Aminotransferase 27 IU/L (<35); Albumin 4.1 g/dL (3.5-5.0); Albumin Globulin Ratio 1.7 (1.0-2.8); Alkaline Phosphatase 63 U/L (38-126); Blood Urea Nitrogen 9 mg/dL (7-17); Calcium 9.0 mg/dL (8.4-10.2); Carbon Dioxide 25 mmol/L (22-32); Chloride 110 mmol/L (98-107); Cholesterol 189 mg/dL (140-199); Estimated Glomerular Filt Rate > 60 mL/min (>60); Globulin 2.4 g/dL (1.7-4.1); Glucose 88 mg/dL (70-99); HDL Cholesterol 99 mg/dL (40-60); HEMOLYSIS < 15 (0-50); Potassium 4.4 mmol/L (3.4-5.1); Sodium 142 mmol/L (137-145); Total Protein 6.5 g/dL (6.3-8.2); Triglycerides 86 mg/dL (35-150)
[2025-06-22 12:30] LABS: Free T4, Direct Thyroxine 1.10 ng/dL (0.78-2.19)
[2025-06-22 12:44] LABS: Thyroid Stimulating Hormone 1.81 uIU/mL (0.47-4.68)
== END ==
PROVIDERS: PCP Family Medicine; Referring Provider Family Medicine; Visit Provider Family Medicine
DX: Z00.00 Encounter for general adult medical examination without abnormal findings (principal); E03.9 Hypothyroidism, unspecified; R73.9 Hyperglycemia, unspecified; E78.2 Mixed hyperlipidemia; F32.5 Major depressive disorder, single episode, in full remission; F51.01 Primary insomnia; K20.90 Esophagitis, unspecified without bleeding; K22.70 Barrett's esophagus without dysplasia; M85.80 Other specified disorders of bone density and structure, unspecified site; R06.02 Shortness of breath; R06.83 Snoring; R63.5 Abnormal weight gain; Z78.0 Asymptomatic menopausal state; Z11.59 Encounter for screening for other viral diseases
CPT/HCPCS: 36415; 80053; 80061; 83036; 84439; 84443; 85025